=== PATIENT | female | born 1980 | race Caucasian/White ===

== ENCOUNTER 2020-07-28 16:08 | Emergency (ER) | payer SELFPAY ==
[~2020-07-28] VITALS: Ht 91.4 cm; Wt 81.6 kg
[~2020-07-28 16:08] MED LIST: ULTRAM50 MG PO
[2020-07-28] MEDS ORDERED: ONDANSETRON HCL INJ 2MG/ML 2ML 2 MG/ML VIAL IV STA (16:42)
[2020-07-28] MEDS ORDERED: KETOROLAC TROMETHAMINE 30 MG/ML VIAL IV STA (16:42)
[2020-07-28] MEDS ORDERED: SODIUM CHLORIDE 0.9% 1000ML 1,000 ML IV SCH (17:15)
[2020-07-28] MEDS ORDERED: ONDANSETRON HCL INJ 2MG/ML 2ML 2 MG/ML VIAL ONE (17:15)
[2020-07-28] MEDS ORDERED: KETOROLAC TROMETHAMINE 30 MG/ML VIAL ONE (17:15)
--- NOTE | 2020-07-28 17:28 | NUR ---
US AT BEDSIDE
--- NOTE | 2020-07-28 18:14 | Diagnostic Imaging Report ---
EXAMINATION: CXR 2 VIEW - HOPD INDICATION: ^cp COMPARISON: None FINDINGS: PA and lateral views TUBES and LINES: None. . LUNGS/PLEURA: Lungs are well inflated. There is no evidence of pneumonia or pulmonary edema.. There is no pleural effusion or pneumothorax. HEART AND MEDIASTINUM: The cardiomediastinal silhouette is unremarkable. BONES AND SOFT TISSUES: No acute osseous lesion. Soft tissues are unremarkable. UPPER ABDOMEN: No free air under the diaphragm. IMPRESSION: No acute thoracic abnormality. Signed by: Cruz Abad MD on 07/28/2020 6:11 PM
--- OUTSIDE RECORDS SUMMARY | 2020-07-28 18:16 | XMS REPORT | Continuity of Care Document ---
Author Author [facility] Organization [facility] Address [address] [place] [address] [address] [place] [address] Phone Unavailable Care Team Providers Care Channel Process Supervisor Name Role Phone Asked, Pcp No PCP Unavailable Christopher NORMAN Attphys Unavailable Problems This patient has no known problems. Allergies, Adverse Reactions, Alerts This patient has no known allergies or adverse reactions. Social History Social Habit Start Date Stop Date Quantity Comments Source Sex Assigned At Bulmaro shrestha Sam Alcohol intake 2018-03-04 00:00:00 2018-03-04 00:00:00 Current non-drinker of alcohol (finding) Yunier Vargas Smoking Status Start Date Stop Date Source Never smoker [place] [facility] Medications This patient has no known medications. Procedures This patient has no known procedures. Plan of Care Planned Activity Planned Date Details Comments Source Future Scheduled Test 2020-08-28 00:00:00 INFLUENZA VACCINE [code = INFLUENZA VACCINE] Yunier Vargas Future Scheduled Test 2000 00:00:00 Screening for luci gnant neoplasm of cervix (procedure) [code = 639104726] Yunier Reyesis Results Test Description Test Time Test Comments Results Result Comments Source CXR 2 VIEW - HOPD 2020-07-28 18:05:00 [facility] [address] [place], [place] [address] Patient Name: RENETTA RAMIREZ MR #: [id number] : 1980 Age/Sex: 40/F Req #: [id number] Adm Physician: Ordered by: ANSELMO NORMAN MD Report #: [id number] Location: FS Room/Bed: Procedure: [id number] HOPD/CXR 2 VIEW - HOPD Exam Date: 07/28/20 Exam Time: 1706 REPORT STATUS: Signed EXAMINATION: CXR 2 VIEW - HOPD INDICATION: cp COMPARISON: None FINDINGS: PA and lateral views TUBES and LINES: None. . LUNGS/PLEURA: Lungs are well inflated. There is no evidence of pneumonia or pulmonary edema.. There is no pleural effusion or pneumothorax. HEART AND MEDIASTINUM: The cardiomediastinal silhouette is unremarkable. BONES AND SOFT TISSUES: No acute osseous lesion. Soft tissues are unremarkable. UPPER ABDOMEN: No free air under the diaphragm. IMPRESSION: No acute thoracic abnormality. Signed by: Cruz Robles MD on 07/28/2020 6:11 PM Dictated By: CRUZ ROBLES MD 10 Transcribed By: KIKE on 07/28/201810 COPY TO: ANSELMO NORMAN MD BREAST ULTRASOUND BILATERAL 2019-09-10 15:33:51 - DIAG MAMM BILATERAL KAILYN CAD DIGITALBILATERAL DIGITAL DIAGNOSTIC MAMMOGRAM 3D/2D WITH CAD: 09/10/2019CLINICAL: Diffuse pain, left breast. Digital breast tomosynthesis was performed in addition to routine CC and MLO views. Current mammographic images were evaluated by either a [employer] M-Vu or a [employer] ImageChecker CAD (computer aided detection system). Comparison is made to exams dated 10/08/2014 mammogram, 03/14/2012 mammogram, and 03/09/2011 mammogram - [facility] The tissue of both breasts is extremely dense, which lowers the sensitivity of mammography. There are nodular densities bilaterally that most likely represent benign fibroadenomas, cysts, or nodular breast tissue, however this must be confirmed with ultrasound. No suspicious mass, architectural distortion, malignant type calcification, or lymph node abnormality detected. INCOMPLETE: ADDITIONAL IMAGING EVALUATION NEEDED Bilateral ultrasound pending for additional evaluation. - BREAST ULTRASOUND BILATERALULTRASOUND OF BOTH BREASTS AND BOTH AXILLA: 09/10/2019Comparison is made to exams dated 10/08/2014 mammogram, 03/14/2012 mammogram, and [facility] Real-time ultrasound of both breasts and both axilla and clinical breast exam were performed. No abnormalities were seen sonographically in either axilla. Benign solid masses were seen. No evidence of malignancy was s een. Unchanged from the previous exam. IMPRESSION: BENIGN There is no sonographic evidence of malignancy. Patient has been informed that she has areas of dense breast tissue that could make it difficult to find a small cancer. A screening mammogram and supplemental ultrasound for dense breast tissue is recommended in 1 year.Gabriela Mcdonald M.D. dm/:09/10/2019 15:33:51 Erector Operator: Subha Pitmtan , [facility] BIRADS 1-2 Combo FU Letter Mammogram BI-RADS: 0 Incomplete: Additional Imaging Evaluation Needed Ultrasound BI-RADS: 2 Benign DIAG MAMM BILATERAL KAILYN CAD DIGITAL 2019-09-10 15:33:51 - DIAG MAMM BILATERAL KAILYN CAD DIGITALBILATERAL DIGITAL DIAGNOSTIC MAMMOGRAM 3D/2D WITH CAD: 09/10/2019CLINICAL: Diffuse pain, left breast. Digital breast tomosynthesis was performed in addition to routine CC and MLO views. Current mammographic images were evaluated by either a [employer] M-Vu or a [employer] ImageChecker CAD (computer aided detection system). Comparison is made to exams dated 10/08/2014 mammogram, 03/14/2012 mammogram, and 03/09/2011 [facility]. The tissue of both breasts is extremely dense, which lowers the sensitivity of mammography. There are nodular densities bilaterally that most likely represent benign fibroadenomas, cysts, or nodular breast tissue, however this must be confirmed with ultrasound. No suspicious mass, architectural distortion, malignant type calcification, or lymph node abnormality detected. INCOMPLETE: ADDITIONAL IMAGING EVALUATION NEEDED Bilateral ultrasound pending for additional evaluation. - BREAST ULTRASOUND BILATERALULTRASOUND OF BOTH BREASTS AND BOTH AXILLA: 09/10/2019Comparison is made to exams dated 10/08/2014 mammogram, 03/14/2012 mammogram, and 03/09/2011 [facility]. Real-time ultrasound of both breasts and both axilla and clinical breast exam were performed. No abnormalities were seen sonographically in either axilla. Benign solid masses were seen. No evidence of malignancy was s een. Unchanged from the previous exam. IMPRESSION: BENIGN There is no sonographic evidence of malignancy. Patient has been informed that she has areas of dense breast tissue that could make it difficult to find a small cancer. A screening mammogram and supplemental ultrasound for dense breast tissue is recommended in 1 year.Gabriela Mcdonald M.D. dm/:09/10/2019 15:33:51 Erector Operator: Subha FALK, [facility]- letter sent: BIRADS 1-2 Combo FU Letter Mammogram BI-RADS: 0 Incomplete: Additional Imaging Evaluation Needed Ultrasound BI-RADS: 2 Benign
--- OUTSIDE RECORDS SUMMARY | 2020-07-28 18:16 | XMS REPORT | Clinical Summary ---
Author Author [facility] Organization [facility] Address Unknown Phone Unavailable Care Team Providers Care Courtroom Deputy Or Calendar Clerk Name Role Phone Asked, No Pcp PCP Unavailable Allergies No Known Allergies Medications No known medications Active Problems Not on file Social History Date Tobacco Use Types Packs/Day Years Used Never Smoker Smokeless Tobacco: Never Used Drinks/Week oz/Week Comments Alcohol Use No Sex Assigned at Date Recorded Not on file Industry Job Start Date Occupation Not on file Not on file Not on file Travel End Travel History Travel Start No recent travel history available. Last Filed Vital Signs Not on file Plan of Treatment Health Maintenance Due Date Last Done Comments CERVICAL CANCER SCREENING 2000 INFLUENZA VACCINE 08/28/2020 Results Not on fileafter 07/28/2019 Advance Directives For more information, please contact: [phone] Patient Front Desk Supervisor Explanation Type Date Recorded Advance Directives, 03/04/2018 11:10 PM Living Will and Medical Power of Medical Coder
--- NOTE | 2020-07-28 18:35 | Diagnostic Imaging Report ---
EXAM: Complete Abdominal Ultrasound INDICATION: RUQ limited, reason: RUQ pain COMPARISON: None. TECHNIQUE: Transverse and longitudinal images of the upper abdomen were obtained. FINDINGS: Liver: Size: 16.3 cm in the right midclavicular line, Enlarged Appearance: Increased echogenicity, smooth contour Mass: No focal masses Spleen: Not seen. Gallbladder: Stones/Sludge: There is gallbladder sludge. Wall: 0.3 cm Appearance: No pericholecystic fluid or hydrops. Sonographic Houston's Sign: Negative Bile Ducts: Intrahepatic Ducts: No dilatation Extrahepatic Ducts: Common bile duct measures 2.2 cm, no dilatation Pancreas: Visualized portions of the pancreatic head, neck and proximal body are normal. Right Kidney: Size: 10.4 cm Echogenicity: Normal Parenchymal thickness: Normal Collecting System: No hydronephrosis Stone: None Cyst/Mass: None Left Kidney: Not seen. Vessels: Aorta: Visualized portions are normal Inferior Vena Cava: Visualized portions are normal Main Portal Vein: 1.1 cm, normal size with hepatopetal flow. Free Fluid: No ascites or pleural effusion IMPRESSION: 1. Diffuse hepatic steatosis without focal mass. 2. Gallbladder sludge. Signed by: Cruz Abad MD on 07/28/2020 6:32 PM
[2020-07-28 19:17] VITALS: BP 146/79
--- NOTE | 2020-07-28 21:43 | Emergency Department Note ---
History of Present Illnes History of Present Illness History of Present Illness This is a 40 year old female of right sided CP radiating to right scapula. Onset this afternoon while at grocery store. Has 2 year old, but otherwise does not lift anything heavy. + N/V. No diarrhea. No dysuria, hematuria. No flank pain. No similar symptoms in past. Pain feels like "being bear hugged from behind". No SOB, no diaphoresis. Cardiac history on mother's side, but not sure of family history. Warp Starter Required: No Onset (how long ago): hour(s) Onset quality: sudden Duration (how long): hour(s) Timing of current episode: constant Progression: waxing and waning Context: Denies recent travel, Denies trauma/injury Relieving factors: none Exacerbating factors: none Associated symptoms: Reports nausea/vomiting; Denies cough, Denies diaphoresis, Denies fever/chills, Denies headaches, Denies loss of appetite, Denies malaise, Denies shortness of breath, Denies syncope, Denies weakness Treatments prior to arrival: other (antiacid with no relief) Past Medical/Family History Physician Review I have reviewed the patient's past medical and family history. Any updates have been documented here. Past Medical History Other Medical History: fibroid cysts in breast endometriosis previous d/c Other Surgery: laproscopic surgery for endometriosis Other Last Tetanus: over 5 yrs Review of Systems Review of Systems Constitutional: Denies chills, Denies diaphoresis, Denies fever EENTM: Denies nose congestion, Denies throat swelling Cardiovascular: Reports chest pain; Denies edema, Denies palpitations, Denies syncope Respiratory: Denies cough, Denies pain on inspiration, Denies pain with cough, Denies dyspnea Gastrointestinal: Reports nausea, Reports vomiting; Denies abdominal pain, Denies constipation, Denies diarrhea Genitourinary: Denies dysuria, Denies frequency, Denies hematuria, Denies pain Musculoskeletal: Reports back pain (right scapula); Denies gout, Denies joint pain, Denies joint swelling, Denies muscle pain Neurological: Denies headache, Denies numbness, Denies weakness Psychological: Denies anxiety, Denies depressed, Denies emotional problems Endocrine: Denies increased thirst, Denies increased urination Hematological/Lymphatic: Denies easy bleeding, Denies easy bruising Physical Exam Related Data Allergies: Coded Allergies: acetaminophen (Verified Allergy, Unknown, 07/28/20) hydrocodone (Verified Allergy, Unknown, 07/28/20) Physical Exam CONSTITUTIONAL Constitutional: Present well-developed, Present well-nourished HENT HENT: Present normocephalic, Present atraumatic, Present oropharynx clear/moist, Present nose normal HENT L/R: Present left ext ear normal, Present right ext ear normal EYES Eyes: Reports PERRL, Reports conjunctivae normal NECK Neck: Present ROM normal PULMONARY Pulmonary: Present effort normal, Present breath sounds normal CARDIOVASCULAR Cardiovascular: Present regular rhythm, Present heart sounds normal, Present capillary refill normal, Present normal rate GASTROINTESTINAL Abdominal: Present soft, Present nontender, Present bowel sounds normal GENITOURINARY SKIN Skin: Absent rash MUSCULOSKELETAL Musculoskeletal: Absent edema, Absent deformity, Absent tenderness NEUROLOGICAL Neurological: Present alert, Present no gross motor or sensory deficits PSYCHOLOGICAL Psychological: Present mood/affect normal, Present thought content normal Results Laboratory Laboratory comments WBC 9.6, HGB 15.6, HCT 48.6. Trop < 0.05. Glu 137, K 3.4, otherwise CMP WNL. Imaging Imaging Comments FINDINGS: PA and lateral views TUBES and LINES: None. . LUNGS/PLEURA: Lungs are well inflated. There is no evidence of pneumonia or pulmonary edema.. There is no pleural effusion or pneumothorax. HEART AND MEDIASTINUM: The cardiomediastinal silhouette is unremarkable. BONES AND SOFT TISSUES: No acute osseous lesion. Soft tissues are unremarkable. UPPER ABDOMEN: No free air under the diaphragm. IMPRESSION: No acute thoracic abnormality. Signed by: Cruz Abad MD on 07/28/2020 6:11 PM FINDINGS: Liver: Size: 16.3 cm in the right midclavicular line, Enlarged Appearance: Increased echogenicity, smooth contour Mass: No focal masses Spleen: Not seen. Gallbladder: Stones/Sludge: There is gallbladder sludge. Wall: 0.3 cm Appearance: No pericholecystic fluid or hydrops. Sonographic Houston's Sign: Negative Bile Ducts: Intrahepatic Ducts: No dilatation Extrahepatic Ducts: Common bile duct measures 2.2 cm, no dilatation Pancreas: Visualized portions of the pancreatic head, neck and proximal body are normal. Right Kidney: Size: 10.4 cm Echogenicity: Normal Parenchymal thickness: Normal Collecting System: No hydronephrosis Stone: None Cyst/Mass: None Left Kidney: Not seen. Vessels: Aorta: Visualized portions are normal Inferior Vena Cava: Visualized portions are normal Main Portal Vein: 1.1 cm, normal size with hepatopetal flow. Free Fluid: No ascites or pleural effusion IMPRESSION: 1. Diffuse hepatic steatosis without focal mass. 2. Gallbladder sludge. Signed by: Cruz Abad MD on 07/28/2020 6:32 PM Procedures 12 Lead ECG Interpretation ECG Interpretation : ECG: ECG 1 Rhythm: sinus tachycardia BPM: 105 QRS axis: right ST segments normal: Yes T waves normal: No Clinical Impression: abnormal ECG Assessment & Plan Medical Decision Making MDM Differential includes, but is not limited to the following: TN, ACS, pneumonia, pneumothorax, dissection, AAA, cholecystitis, cholelithiasis, pancreatitis, kidney stone. Gave strict return precautions, and patient to have promt followup. Reassessment Reassessment time: 18:00 Reassessment much better Assessment & Plan Final Impression: (1) Chest pain (2) Gallbladder sludge Depart Disposition: HOME, SELF-[facility] Meds Reported Medications Tramadol Hcl (ULTRAM) 50 Mg Tablet, 50 MG PO Q8H PRN for PAIN, #30 TAB 06/16/16 Medications in the ED Ondansetron HCl 4 mg NOW STAT IV ; Start 07/28/20 at 16:42; Stop 07/28/20 at 16:54; Status DC Ketorolac Tromethamine 30 mg ONCE STAT IV ; Start 07/28/20 at 16:42; Stop 07/28/20 at 16:54; Status DC ANSELMO NORMAN MD Jul 28, 2020 17:06
== END 2020-07-28 19:20 | disposition home or self-care (01) ==
LOC: FSED 16:50
DX: R07.9 Chest pain, unspecified (principal); K82.9 Disease of gallbladder, unspecified; R94.31 Abnormal electrocardiogram [ECG] [EKG]; N80.9 Endometriosis, unspecified
CPT/HCPCS: 71046; 76705; 80053; 82553; 84484; 85025; 93005; 99284; J1885; J2405; J7030

== ENCOUNTER 2022-01-22 09:38 | Emergency (ER) | payer SELFPAY ==
[~2022-01-22] VITALS: Ht 160 cm; Wt 81.4 kg
[2022-01-22] MEDS ORDERED: ALBUTEROL/IPRATROPIUM 3 ML NEB NEB ONE (10:30)
[2022-01-22] MEDS ORDERED: ALBUTEROL/IPRATROPIUM 3 ML NEB ONE (10:30)
[2022-01-22] MEDS ORDERED: AZITHROMYCIN250 MG PO (11:27)
[2022-01-22] MEDS ORDERED: VENTOLIN HFA18 GM INH (11:28)
[2022-01-22] MEDS ORDERED: ALBUTEROL2.5 MG/3 M INH (11:29)
[2022-01-22] MEDS ORDERED: PREDNISONE20 MG PO (11:30)
[2022-01-22] MEDS ORDERED: PREDNISONE 20 MG TAB PO ONE (11:45)
[2022-01-22] MEDS ORDERED: PREDNISONE 20 MG TAB ONE (11:50)
== END 2022-01-22 11:43 | disposition home or self-care (01) ==
LOC: FSED 09:55
DX: R05.9 Cough, unspecified (principal); J98.01 Acute bronchospasm; J30.2 Other seasonal allergic rhinitis; N64.9 Disorder of breast, unspecified
CPT/HCPCS: 71046; 81003; 81025; 99283; J7512

== ENCOUNTER 2024-08-26 15:07 | Emergency (ER) | payer SELFPAY ==
[~2024-08-26] VITALS: Ht 160 cm; Wt 72.1 kg
[~2024-08-26 15:07] MED LIST changes: +ALBUTEROL2.5 MG/3 M INH; +AZITHROMYCIN250 MG PO; +PREDNISONE20 MG PO; +VENTOLIN HFA18 GM INH
[2024-08-26] MEDS: DEXAMETHASONE SOD PHOS INJ 4 MG/ML SDV IV ONE (16:14)
[2024-08-26] MEDS: KETOROLAC TROMETHAMINE 30 MG/ML VIAL IV STA (16:14)
[2024-08-26] MEDS: METOCLOPRAMIDE HCL 10 MG/2ML VIAL IV ONE (16:14)
[2024-08-26] MEDS: SODIUM CHLORIDE 0.9% 1000ML 1,000 ML IV ONE (16:15)
[2024-08-26] MEDS ORDERED: REGLAN10 MG PO (17:01)
[2024-08-26 17:33] VITALS: PULSE 86; RESP 16; TEMP 97.9; O2SAT 97
== END 2024-08-26 17:33 | disposition home or self-care (01) ==
LOC: FSED 15:11
DX: G43.909 Migraine, unspecified, not intractable, without status migrainosus (principal); N80.9 Endometriosis, unspecified; F17.210 Nicotine dependence, cigarettes, uncomplicated
CPT/HCPCS: 96374; 96375; 99283; J1100; J1885; J2765; J7030